=== PATIENT | male | born 1995 | race Caucasian/White ===

== ENCOUNTER 2019-06-04 20:30 | Emergency (ER) | payer SELFPAY ==
[~2019-06-04] VITALS: Ht 182.9 cm; Wt 80.0 kg
[2019-06-04] MEDS ORDERED: FLUORESCEIN SODIUM 1 MG STRIP OU ONE (21:00)
[2019-06-04 21:15] VITALS: BP 123/70
[2019-06-04] MEDS ORDERED: NEOMYCIN/BACITRACIN/POLYMYXIN/HYDROCORT 3.5 GM OPHTHALMIC OINTMENT OD ONE (21:15)
== END 2019-06-04 22:09 | disposition home or self-care (01) ==
LOC: EMS 20:32
DX: H10.9 Unspecified conjunctivitis (principal)